=== PATIENT | female | born 1945 | race Caucasian/White ===

== ENCOUNTER → 2017-01-11 | Outpatient (CLI) | payer MEDICARE ==
[~2017-01-11] MED LIST: AMBIEN PO; AZOR 10-40 MG1 UDTAB PO; AZOR 10/40 MG T1 TAB PO; CENTRUM SILVER PO; EVISTA60 M1 PO; K-DUR20 ME1 PO; K-LOR20 MEQ PO; LORTAB 5/500 TA1 TA2 PO; PAXIL PO; PRILOSEC20 MG PO; PRILOSEC40 MG PO; TOPROL XL PO; TRYPSIN COMPLEX60 GM TP; VITAL-D RX TABL1 TAB
--- NOTE | ~2017-01-11 | MY29 ---
[facility] A Service of [facility] RADIOLOGY TEXT RESULTS PATIENT: JAIME VIRK LOCATION: [facility] : 49 UNIT #: [id number] AGE: [address]: Joce Jackson MD SEX: F ORDER DR: [id number] [facility] [address] [place], [place] [address] [id number] O MR#: [id number] Acc #: [id number] NAME: JAIME VIRK : 1945 SEX: F STUDY DATE/TIME: 01/11/2017 11:46 UNIT: [facility] ROOM: STUDY DESCRIPTION: MY [facility] SCREENING W/ CAD BILAT Attending Physician: Joce Jackson M.D. Referring Physician: Joce Jackson M.D. Ordering Physician: Joce Jackson M.D. Primary Care Physician: Maria C Crandall A.P.R.N. MEDICAL IMAGING REPORT This report is preliminary unless electronic signature is present EXAM Digital screening mammogram with CAD INDICATIONS Routine screening PROCEDURE Bilateral CC and MLO views obtained on a digital mammography unit. FDA-approved CAD device utilized. COMPARISON 12/25/2015 and 12/06/2015 FINDINGS Heterogeneous fibroglandular density could obscure a small mass. Stable parenchymal pattern. No dominant mass or suspicious calcification. IMPRESSION Negative screening mammogram; screen interval in 1 year suggested. Patient's over the age of 40 are entered into a reminder system with target due date for the next mammogram. A result letter will be sent to the patient. BIRADS: 1 Negative Dictated by... Angel Casillas M.D. THIS IS AN ELECTRONICALLY VERIFIED REPORT Angel Casillas M.D. at 01/12/2017 7:12 AM EED/to [facility] A Service [facility] RADIOLOGY TEXT RESULTS PATIENT: JAIME VIRK LOCATION: [facility] : 49 UNIT #: [id number] AGE: [address]: Joce Jackson MD SEX: F ORDER DR: TD: 01/11/2017 20:14 JOB #: [id number] MEDICAL IMAGING REPORT Page 1 of 1 COPY
== END | disposition home or self-care (01) ==
LOC: CWCC 11:15
DX: Z12.31 Encounter for screening mammogram for malignant neoplasm of breast (principal)
CPT/HCPCS: G0202